=== PATIENT | male | born 1945 | race Caucasian/White ===

== ENCOUNTER → 2022-01-18 | Outpatient (CLI) | payer MEDICARE, OTHER | LOC: HEART 5 09:14 | DX: I50.22 Chronic systolic (congestive) heart failure (principal); R06.02 Shortness of breath | CPT/HCPCS: 94060; 94729 ==

== ENCOUNTER → 2022-02-09 | Outpatient (CLI) | payer MEDICARE, OTHER | LOC: ECHO 13:15 | DX: I25.10 Atherosclerotic heart disease of native coronary artery without angina pectoris (principal); I11.0 Hypertensive heart disease with heart failure; I50.22 Chronic systolic (congestive) heart failure; I42.0 Dilated cardiomyopathy; I08.1 Rheumatic disorders of both mitral and tricuspid valves | CPT/HCPCS: ECHO; 93306 ==